=== PATIENT | male | born 1955 | race Caucasian/White ===

== ENCOUNTER → 2018-03-29 | Outpatient (CLI) | payer OTHER ==
[~2018-03-29] MED LIST: SIMV10TA PO
[2018-03-29 09:44] LABS: BASOPHILS # (AUTO) 0.04 x10^3/uL (0-0.1); BASOPHILS % (AUTO) 1 % (0-1); EOSINOPHILS # (AUTO) 0.09 x10^3/uL (0-0.4); EOSINOPHILS % (AUTO) 1 % (1-7); LYMPHOCYTES # (AUTO) 2.43 x10^3/uL (1-3.4); LYMPHOCYTES % (AUTO) 36 % (22-44); MD NO; MEAN CORPUSCULAR HEMOGLOBIN 28.2 pg (27.5-34.5); MEAN CORPUSCULAR HGB CONC 33.4 g/dL (33.2-36.2); MEAN CORPUSCULAR VOLUME 84.6 fL (81-97); MEAN PLATELET VOLUME 7.1 fL (7.4-10.4); MONOCYTES # (AUTO) 0.53 x10^3/uL (0.2-0.8); MONOCYTES % (AUTO) 8 % (2-9); NEUTROPHILS # (AUTO) 3.62 x10^3/uL (1.8-6.8); NEUTROPHILS % (AUTO) 54 % (42-75); PLATELET COUNT 268 x10^3/uL (130-400); RED BLOOD COUNT 5.64 x10^6/uL (4.38-5.82); RED CELL DISTRIBUTION WIDTH 13.7 % (9.4-14.8)
[2018-03-29 09:47] LABS: MICROSCOPIC AUTO
[2018-03-29 09:55] LABS: ALBUMIN 4.1 g/dL (3.4-5.0); ANION GAP 4 mmol/L (5-15); CALCIUM 9.2 mg/dL (8.5-10.1); CHLORIDE 103 mmol/L (98-107); CREATININE 1.08 mg/dL (0.7-1.3)
[2018-03-29 10:10] LABS: ALANINE AMINOTRANSFERASE 45 U/L (12-78); ALKALINE PHOSPHATASE 89 U/L (45-117); BILIRUBIN,TOTAL 1.5 mg/dL (0.2-1.0); TOTAL PROTEIN 7.7 g/dL (6.4-8.2)
== END | disposition home or self-care (01) ==
LOC: STAR 08:49
PROVIDERS: ATTEND Urology
DX: Z01.818 Encounter for other preprocedural examination (principal); N40.1 Benign prostatic hyperplasia with lower urinary tract symptoms
CPT/HCPCS: 36415; 80053; 81001; 85025; 87086; 93005

== ENCOUNTER 2018-04-12 05:37 | Observation (INO) | payer OTHER ==
[~2018-04-12] VITALS: Ht 172.7 cm; Wt 76.3 kg
[2018-04-12] MEDS ORDERED: LACTATED RINGERS 1,000 ML IV SCH (06:05)
[2018-04-12] MEDS ORDERED: MIDAZOLAM 1 MG/ML, 2ML ONE (07:18)
[2018-04-12] MEDS ORDERED: FENTANYL PF 250 MCG/5ML ONE (07:19)
[2018-04-12] MEDS ORDERED: PROPOFOL 10 MG/ML, 20ML ONE (07:32)
[2018-04-12] MEDS ORDERED: ROCURONIUM 10MG/ML,5ML ONE (07:32)
[2018-04-12] MEDS ORDERED: SUCCINYLCHOLINE 20 MG/ML, 10ML ONE (07:32)
[2018-04-12] MEDS ORDERED: CEFAZOLIN 1,000 MG ONE (07:32)
[2018-04-12] MEDS ORDERED: ONDANSETRON 2MG/ML, 2ML ONE (07:32)
[2018-04-12] MEDS ORDERED: DEXAMETHASONE 4 MG/ML, 1ML ONE (07:32)
[2018-04-12] MEDS ORDERED: OXYcodone 5 MG/5 ML ORAL.SOL UDC PO PRN (08:00)
[2018-04-12] MEDS ORDERED: HYDROmorphone 1 MG/ML, 1ML IV PRN (08:00)
[2018-04-12] MEDS ORDERED: KETOROLAC 30 MG/1 ML IV PRN (08:00)
[2018-04-12] MEDS ORDERED: hydrALAzine 20 MG/ML, 1ML IV PRN (08:00)
[2018-04-12] MEDS ORDERED: PROMETHAZINE 25 MG/ML, 1ML IV PRN (08:00)
[2018-04-12] MEDS ORDERED: ONDANSETRON 2MG/ML, 2ML IVPush PRN (08:00)
[2018-04-12] MEDS ORDERED: METOCLOPRAMIDE 5 MG/ML, 2ML IV PRN (08:00)
[2018-04-12] MEDS ORDERED: MEPERIDINE/PF 25MG/0.5ML IVPush PRN (08:00)
[2018-04-12] MEDS ORDERED: FENTANYL PF 100 MCG/2ML IV PRN (08:00)
[2018-04-12] MEDS ORDERED: ALBUTEROL SULFATE 2.5 MG/3 ML NPPB PRN (08:00)
[2018-04-12] MEDS ORDERED: LABETALOL 5MG/ML, 20ML IV PRN (08:00)
[2018-04-12] MEDS ORDERED: SUGAMMADEX 200 MG/2 ML IVPush ONE (09:24)
[2018-04-12 10:50] LABS: BASOPHILS # (AUTO) 0.01 x10^3/uL (0-0.1); BASOPHILS % (AUTO) 0 % (0-1); EOSINOPHILS % (AUTO) 0 % (1-7); LYMPHOCYTES # (AUTO) 0.73 x10^3/uL (1-3.4); LYMPHOCYTES % (AUTO) 7 % (22-44); MD NO; MEAN CORPUSCULAR HEMOGLOBIN 28.8 pg (27.5-34.5); MEAN CORPUSCULAR HGB CONC 33.9 g/dL (33.2-36.2); MEAN CORPUSCULAR VOLUME 84.9 fL (81-97); MEAN PLATELET VOLUME 6.8 fL (7.4-10.4); MONOCYTES # (AUTO) 0.07 x10^3/uL (0.2-0.8); MONOCYTES % (AUTO) 1 % (2-9); NEUTROPHILS # (AUTO) 9.97 x10^3/uL (1.8-6.8); NEUTROPHILS % (AUTO) 92 % (42-75); PLATELET COUNT 236 x10^3/uL (130-400); RED BLOOD COUNT 4.71 x10^6/uL (4.38-5.82); RED CELL DISTRIBUTION WIDTH 13.8 % (9.4-14.8)
[2018-04-12 11:02] LABS: ANION GAP 3 mmol/L (5-15); CALCIUM 8.4 mg/dL (8.5-10.1); CHLORIDE 105 mmol/L (98-107)
[2018-04-12] MEDS ORDERED: OPIUM/BELLADONNA SUPP.RECT 16.2-60 MG ONE (11:04)
[2018-04-12] MEDS ORDERED: OPIUM/BELLADONNA SUPP.RECT 16.2-60 MG PR PRN ×2 (11:30→12:30)
[2018-04-12 12:00] VITALS: BP 137/89
[2018-04-12] MEDS ORDERED: HYDROcodone/APAP 5/325 TABLET PO PRN (12:30)
[2018-04-12] MEDS ORDERED: morphine SULFATE 10 MG/ML, 1ML IV PRN (12:30)
[2018-04-12] MEDS ORDERED: ONDANSETRON 2MG/ML, 2ML IV PRN (12:30)
[2018-04-12 16:45] VITALS: BP 102/64
[2018-04-12] MEDS: ACETAMINOPHEN 325 MG TABLET PO PRN ×2 (17:18→21:16)
[2018-04-12 19:31] VITALS: BP 115/68
[2018-04-12] MEDS: LACTATED RINGERS 1,000 ML IV SCH ×2 (20:00→21:25)
[2018-04-12] MEDS ORDERED: SIMVASTATIN 10 MG TABLET PO SCH (21:00)
[2018-04-12 23:19] VITALS: BP 118/72
[2018-04-13 04:02] VITALS: BP 105/64
[2018-04-13 07:09] VITALS: BP 102/69
== END 2018-04-13 11:30 | disposition home or self-care (01) ==
LOC: OUT 05:37 → 4NOR 11:50 → OUT 13:02 → 4NOR 13:02 → DCLOUNGE 04-13 11:15
PROVIDERS: ADMIT Urology; ATTEND Urology
DX: N40.0 Benign prostatic hyperplasia without lower urinary tract symptoms (principal); E78.00 Pure hypercholesterolemia, unspecified
CPT/HCPCS: 36415; 52601; 80048; 85014; 85018; 85025; 88305; G0378; J0330; J0690; J1100; J2250; J2405; J2704; J3010; J7120

== ENCOUNTER → 2020-03-29 | Outpatient (CLI) | payer OTHER ==
[2020-03-29 12:30] LABS: BASOPHILS % (AUTO) 0 % (0-1); EOSINOPHILS % (AUTO) 2 % (1-7); LYMPHOCYTES % (AUTO) 40 % (22-44); MEAN CORPUSCULAR HEMOGLOBIN 28.8 pg (27.5-34.5); MEAN CORPUSCULAR HGB CONC 34.1 g/dL (33.2-36.2); MEAN PLATELET VOLUME 7.2 fL (7.4-10.4); MONOCYTES % (AUTO) 8 % (2-9); NEUTROPHILS % (AUTO) 50 % (42-75); PLATELET COUNT 267 x10^3/uL (130-400); RED CELL DISTRIBUTION WIDTH 14.1 % (9.4-14.8)
[2020-03-29 12:31] LABS: MD NO
[2020-03-29 12:33] LABS: PROTHROMBIN TIME 10.6 Seconds (9.6-11.5)
[2020-03-29 12:35] LABS: ANION GAP 5 mmol/L (5-15); CALCIUM 9.2 mg/dL (8.5-10.1); CHLORIDE 105 mmol/L (98-107); CREATININE 1.03 mg/dL (0.7-1.3)
== END | disposition home or self-care (01) ==
LOC: STAR 10:13
PROVIDERS: ATTEND Student in an Organized Health Care Education/Training Program
DX: Z01.818 Encounter for other preprocedural examination (principal); N43.40 Spermatocele of epididymis, unspecified; Z20.828 Contact with and (suspected) exposure to other viral communicable diseases
CPT/HCPCS: 80048; 85025; 85610; 87635; 93005

== ENCOUNTER 2020-04-04 11:01 | Day surgery (SDC) | payer OTHER ==
[~2020-04-04] VITALS: Ht 172.7 cm; Wt 74.0 kg
[2020-04-04] MEDS ORDERED: CHLORHEXIDINE 15 ML UDC MM ONE (11:30)
[2020-04-04] MEDS ORDERED: LACTATED RINGERS 1,000 ML IV SCH (11:30)
[2020-04-04] MEDS ORDERED: BUPIVACAINE/PF 0.25% ONE (12:24)
[2020-04-04] MEDS ORDERED: EPINEPHRINE 1 MG/ML, 1ML ONE (12:24)
[2020-04-04] MEDS ORDERED: FENTANYL PF 250 MCG/5ML ONE ×2 (12:51→14:10)
[2020-04-04] MEDS ORDERED: MIDAZOLAM 1 MG/ML, 2ML ONE ×2 (12:51→14:10)
[2020-04-04] MEDS ORDERED: BUPIVACAINE/PF 0.5% ONE (13:03)
[2020-04-04] MEDS ORDERED: DEXAMETHASONE 4 MG/ML, 5ML ONE (13:14)
[2020-04-04] MEDS ORDERED: CEFAZOLIN 1,000 MG ONE ×2 (13:14→14:37)
[2020-04-04] MEDS ORDERED: PROPOFOL 10 MG/ML, 20ML ONE ×2 (13:14→14:36)
[2020-04-04] MEDS ORDERED: ONDANSETRON 2MG/ML, 2ML ONE (13:14)
[2020-04-04] MEDS ORDERED: LIDOCAINE-MPF 2% ,5ML ONE (13:15)
[2020-04-04] MEDS ORDERED: KETOROLAC 30 MG/1 ML ONE (13:15)
[2020-04-04] MEDS ORDERED: HYDROmorphone 1 MG/ML, 1ML INJ IVPush PRN (13:30)
[2020-04-04] MEDS ORDERED: hydrALAzine 20 MG/ML, 1ML IV PRN (13:30)
[2020-04-04] MEDS ORDERED: ONDANSETRON 2MG/ML, 2ML IVPush PRN (13:30)
[2020-04-04] MEDS ORDERED: LABETALOL 5MG/ML, 20ML IV PRN (13:30)
[2020-04-04] MEDS ORDERED: EPHEDRINE 50 MG/ML, 1ML IVPush PRN (13:30)
[2020-04-04] MEDS ORDERED: OXYcodone 5 MG/5 ML ORAL.SOL UDC PO PRN (13:30)
[2020-04-04] MEDS ORDERED: FENTANYL PF 100 MCG/2ML IV PRN (13:30)
[2020-04-04] MEDS ORDERED: PROMETHAZINE 25 MG/ML, 1ML IVPush PRN (13:30)
[2020-04-04] MEDS ORDERED: EPHEDRINE 50 MG/ML, 1ML ONE (14:36)
[2020-04-04] MEDS ORDERED: DEXAMETHASONE 4 MG/ML, 1ML ONE (14:36)
== END 2020-04-04 15:25 | disposition home or self-care (01) ==
LOC: OUT 11:01
PROVIDERS: ATTEND Student in an Organized Health Care Education/Training Program
DX: N43.40 Spermatocele of epididymis, unspecified (principal); Z79.899 Other long term (current) drug therapy; Z90.79 Acquired absence of other genital organ(s); Z98.52 Vasectomy status
CPT/HCPCS: 54840; 88304; J0171; J0690; J1100; J1885; J2250; J2405; J2704; J3010; J7120